=== PATIENT | male | born 1945 | race Caucasian/White ===

== ENCOUNTER 2017-10-07 17:18 | Emergency (ER) | payer MEDICARE ==
[2014-08-13 10:29] VITALS: BMI 36.0
[~2017-10-07 17:18] MED LIST: BAYER CHEWABLE81 MG PO; CORDARONE200 MG PO; COZAAR50 MG PO; FISH OIL 500 MG1 CAP PO; HEMOCYTE PLUS C1 CAP PO; MULTI-DAY VITAM1 TAB PO; PRAVACHOL40 MG PO; SYNTHROID88 MCG PO; ZANTAC150 MG PO
[2017-10-07 18:08] LABS: BASOPHILS 0.3 % (0-2); EOSINOPHILS 1.8 % (0-7); HEMOGLOBIN 12.9 g/dL (13.5-17.5); IMMATURE GRANULOCYTES 0.1 % (0-5); LYMPHOCYTES 10.8 % (15-50); MCH 29.1 pg (26.0-34.0); MCHC 33.1 g/dL (31.0-37.0); MCV 87.8 fL (80.0-100.0); MONOCYTES 7.7 % (2-11); NEUTROPHILS 79.3 % (40-80); RBC 4.44 10x6/uL (4.20-6.10); RDW 13.5 % (11.5-14.5); WBC 7.2 10x3/uL (4.8-10.8)
[2017-10-07 18:10] LABS: PLATELET COUNT 109 10x3/uL (130-400)
[2017-10-07 18:16] LABS: ALBUMIN 3.6 g/dL (3.4-5.0); ANION GAP 12.1 mmol/L (8-16); BILIRUBIN - TOTAL 0.41 mg/dL (0.2-1.3); CALCIUM 9.1 mg/dL (8.5-10.1); CARBON DIOXIDE 26.4 mmol/L (21.0-32.0); CREATININE - SERUM 1.4 mg/dL (0.6-1.3); POTASSIUM - SERUM 3.5 mmol/L (3.5-5.1); PROTEIN - SERUM 7.3 g/dL (6.4-8.2)
== END 2017-10-07 18:42 | disposition home or self-care (01) ==
LOC: D.ER 17:18
PROVIDERS: Physician Assistant Medical
DX: J11.1 Influenza due to unidentified influenza virus with other respiratory manifestations (principal); R50.9 Fever, unspecified; I10 Essential (primary) hypertension; E03.9 Hypothyroidism, unspecified

== ENCOUNTER → 2018-01-15 09:12 | Outpatient (CLI) | payer MEDICARE ==
[2014-08-13 10:29] VITALS: BMI 36.0
== END | disposition home or self-care (01) ==
LOC: D.RAD 09:12
DX: Q79.1 Other congenital malformations of diaphragm (principal)

== ENCOUNTER → 2018-02-21 12:30 | Outpatient (CLI) | payer MEDICARE ==
[2014-08-13 10:29] VITALS: BMI 36.0
== END | disposition home or self-care (01) ==
LOC: D.RT 12:30
DX: J44.9 Chronic obstructive pulmonary disease, unspecified (principal)

== ENCOUNTER → 2018-06-04 07:41 | Outpatient (CLI) | payer MEDICARE ==
[2014-08-13 10:29] VITALS: BMI 36.0
== END | disposition home or self-care (01) ==
LOC: D.CT 07:41
DX: R91.1 Solitary pulmonary nodule (principal)

== ENCOUNTER 2018-08-13 08:36 | Day surgery (SDC) | payer MEDICARE ==
[~2018-08-13] VITALS: Ht 182.9 cm; Wt 113.6 kg
--- NOTE | ~2018-08-13 | OP ---
PATIENT NAME: TOM COLLADO MEDICAL RECORD: [id number] :41 LOCATION:D.OPS ADMISSION DATE: SURGEON: MACKENZIE MAGUIRE DO DATE OF OPERATION: 08/13/2018 PROCEDURE: Colonoscopy with polypectomy and biopsies. INDICATION FOR PROCEDURE: Occult blood in stools and constipation. SCOPE: Blink for iPhone and Android video pediatric colonoscope. MEDICATIONS: Propofol 450 mg IV per anesthesia. WITHDRAWAL TIME: 37 minutes. ESTIMATED BLOOD LOSS: Minimal. COMPLICATIONS: None. FINDINGS: Informed consent was given. The patient was made comfortable with the above medication. After reaching an adequate level of sedation by slow IV push, the patient was placed on his left side. A digital rectal examination was performed and was normal. The endoscope was then advanced under direct visualization through the rectum to the terminal ileum and the cecum. The endoscope was slowly withdrawn and mucosa was carefully examined. The prep quality was good. There were multiple polyps visualized on today's examination. Four were located in the ascending colon. These were a mix of sessile and flat polyps, ranging in size from 4 mm to 1 cm. Two of these polyps were removed using endoscopic mucosal resection technique with saline injection for a cushion followed by hot snare polypectomy. One of these sites were closed using an endoclip to reduce the risk of postpolypectomy bleeding. Two other polyps were removed using a hot snare alone successfully. In the transverse colon, there was a polyp, which was benign appearing and sessile, and measured approximately 5 mm in diameter. It was removed using hot snare. In the descending colon, there was a benign-appearing sessile polyp, which measured approximately 4 mm in diameter and that was removed using cold forceps. In the rectum, there were some glandular-appearing tissue, but a polyp was not visualized within this tissue and there were no obvious borders to this tissue. Two cold forceps biopsies were taken to submit for histology to rule out the presence of a polyp. This will need reevaluated if polypoid tissue/adenomatous tissue is present in the biopsies. Throughout the entire colon, there was moderate diverticulosis consisting of small and large mouth diverticula. There was no evidence of diverticulitis. Retroflexion was performed in the rectum with visualization of grade II internal hemorrhoids without active bleeding. This is the likely source for the positive Hemoccult test. The endoscope was removed from the patient. The patient tolerated the procedure well and there were no immediate complications. IMPRESSION: 1. Six separate polyps removed using a combination of endoscopic mucosal resection technique, hot snare, and cold forceps. 2. Diffuse diverticulosis without diverticulitis. 3. Grade II internal hemorrhoids without active bleeding. 4. Glandular tissue in the rectum, which was biopsied for further workup. OPERATIVE REPORT [id number] TOM COLLADO PLAN AND RECOMMENDATIONS: 1. Discharge home when recovery parameters are met. 2. Follow up biopsy specimen results. 3. High-fiber diet. 4. Continue current medications. 5. Recall colonoscopy will be dependent on pathology results, but I anticipate need for recall in 1-2 years based on the number and types of polyps visualized on today's examination. 6. If the hemorrhoids become symptomatic, this may require surgical intervention. At this time, the patient's bowel habits are maintained with use of prune juice and this should be continued as needed. TRANSINT:[id number] Voice Confirmation ID: [id number] DOCUMENT ID: [id number] MACKENZIE MAGUIRE DO at 1012 CC: [id number] DICTATION DATE: 08/13/18 1117 POSTBED STITCHER: 08/13/18 1205 [facility] 08/13/18 [facility] [address] [place] [address]
[2018-08-13 09:10] LABS: HEMATOCRIT 41.5 % (42.0-54.0); MCH 29.4 pg (26.0-34.0); MCHC 33.7 g/dL (31.0-37.0); MCV 87.2 fL (80.0-100.0); MEAN PLATELET VOLUME 10.6 fL (7.4-10.4); RBC 4.76 10x6/uL (4.20-6.10); RDW 13.9 % (11.5-14.5); WBC 5.9 10x3/uL (4.8-10.8)
[2018-08-13 09:36] VITALS: Ht 182.9 cm; Wt 113.6 kg
== END 2018-08-13 12:05 | disposition home or self-care (01) ==
LOC: D.OPS 08:36
PROVIDERS: Anesthesiology
DX: K63.5 Polyp of colon (principal); K59.00 Constipation, unspecified; K57.30 Diverticulosis of large intestine without perforation or abscess without bleeding; K64.1 Second degree hemorrhoids

== ENCOUNTER → 2018-10-10 11:31 | Outpatient (CLI) | payer OTHER ==
[2018-08-13 09:36] VITALS: BMI 34.0
== END | disposition home or self-care (01) ==
LOC: D.MRI 11:31
DX: M25.511 Pain in right shoulder (principal)

== ENCOUNTER → 2018-10-16 17:23 | Outpatient (CLI) | payer OTHER ==
[2018-08-13 09:36] VITALS: BMI 34.0
[~2018-10-16 17:23] MED LIST changes: +HYDROCODON-ACE1 EAC2 PO
== END | disposition home or self-care (01) ==
LOC: D.LABREF 17:23
DX: M19.011 Primary osteoarthritis, right shoulder (principal); Z11.8 Encounter for screening for other infectious and parasitic diseases

== ENCOUNTER 2018-10-18 16:19 | Inpatient (IN) | payer OTHER ==
[~2018-10-18] VITALS: Ht 182.9 cm; Wt 113.6 kg
[~2018-10-18 16:19] MED LIST changes: -HYDROCODON-ACE1 EAC2 PO
[2018-11-09 16:43] LABS: BASOPHILS 0.5 % (0-2); EOSINOPHILS 6.5 % (0-7); HEMATOCRIT 41.5 % (42.0-54.0); HEMOGLOBIN 13.9 g/dL (13.5-17.5); IMMATURE GRANULOCYTES 0.3 % (0-5); LYMPHOCYTES 34.1 % (15-50); MCH 28.9 pg (26.0-34.0); MCHC 33.5 g/dL (31.0-37.0); MCV 86.3 fL (80.0-100.0); MEAN PLATELET VOLUME 10.4 fL (7.4-10.4); MONOCYTES 7.8 % (2-11); NEUTROPHILS 50.8 % (40-80); PLATELET COUNT 162 10x3/uL (130-400); RBC 4.81 10x6/uL (4.20-6.10); RDW 13.4 % (11.5-14.5); WBC 6.7 10x3/uL (4.8-10.8)
[2018-11-09 17:02] LABS: APTT 28.1 SECONDS (22.8-39.4); INR 0.97 (0.85-1.17); PROTIME 12.4 SECONDS (11.6-15.0)
[2018-11-09 17:05] LABS: ANION GAP 12.3 mmol/L (8-16); CALCIUM 9.7 mg/dL (8.5-10.1); CREATININE - SERUM 1.2 mg/dL (0.6-1.3); POTASSIUM - SERUM 4.3 mmol/L (3.5-5.1)
[2018-11-09 17:28] LABS: APPEARANCE CLEAR (CLEAR); BILIRUBIN NEGATIVE (NEGATIVE); COLOR YELLOW (YELLOW); GLUCOSE NEGATIVE (NEGATIVE); KETONE NEGATIVE (NEGATIVE); NITRITE NEGATIVE (NEGATIVE); PROTEIN NEGATIVE (NEGATIVE); UROBILINOGEN NORMAL (NORMAL)
[2018-11-14 08:30] VITALS: BP 130/80; BMI 35.0
[2018-11-14 15:03] VITALS: BP 121/69
[2018-11-14 15:14] VITALS: BP 121/63; Ht 182.9 cm; Wt 113.6 kg
[2018-11-14 20:41] VITALS: BP 115/66
[2018-11-15 00:33] VITALS: BP 124/60
[2018-11-15 05:32] LABS: BASOPHILS 0.1 % (0-2); EOSINOPHILS 0.1 % (0-7); HEMATOCRIT 34.5 % (42.0-54.0); HEMOGLOBIN 11.3 g/dL (13.5-17.5); IMMATURE GRANULOCYTES 0.1 % (0-5); LYMPHOCYTES 14.6 % (15-50); MCH 28.5 pg (26.0-34.0); MCHC 32.8 g/dL (31.0-37.0); MCV 86.9 fL (80.0-100.0); MEAN PLATELET VOLUME 10.6 fL (7.4-10.4); MONOCYTES 8.1 % (2-11); PLATELET COUNT 146 10x3/uL (130-400); RBC 3.97 10x6/uL (4.20-6.10); RDW 13.6 % (11.5-14.5); WBC 10.2 10x3/uL (4.8-10.8)
[2018-11-15 05:52] VITALS: BP 123/67
[2018-11-15 05:52] LABS: ANION GAP 15.5 mmol/L (8-16); CALCIUM 8.2 mg/dL (8.5-10.1); CARBON DIOXIDE 24.6 mmol/L (21.0-32.0); CREATININE - SERUM 1.5 mg/dL (0.6-1.3); POTASSIUM - SERUM 4.1 mmol/L (3.5-5.1)
[2018-11-15] MEDS ORDERED: HYDROCODON-ACE1 EAC2 PO (07:50)
[2018-11-15 09:04] VITALS: BP 105/60
--- NOTE | 2018-11-15 10:06 | MORECARE ---
CASE MANAGEMENT DISCHARGE SUMMARY PATIENT: TOM COLLADO UNIT: [id number] ADM DATE: 11/14/18 AGE: 73 : 43 SEX: M ROOM/BED: D.2212 AUTHOR: LIAM ANGEL PHYSICIAN: REFERRING PHYSICIAN: CHAVA JACOB MD DATE OF SERVICE: 11/15/18 Discharge Plan Patient Name: TOM COLLADO Facility: [facility]:[place] : 1945 Planned Disposition: Home or Self Care Anticipated Discharge Date: Discharge Date: Expected LOS: Initial Reviewer: [email or web address] Initial Review Date: 11/14/2018 Generated: 11/15/18 11:05 am Comments DCP- Discharge Planning Updated by [email or web address]: Ofelia Lee on 11/15/18 9:[address] Patient Name: TOM COLLADO Admission Status: Elective Accout number: [id number] Admission Date: 11-14-2018 : 1945 Admission Diagnosis: Attending: CHAVA JACOB Current LOS: 1 Anticipated DC Date: Planned Disposition: Home or Self Care Primary Insurance: [employer] Discharge Planning Comments: CM met with patient to complete initial dc planning assessment. CM educated patient on the CM role and verbal consent given by patient to complete assessment. Patient lives at home where he is independent with his care. At discharge patient plans to return home and feels this is a safe discharge. His brother will be his racecar driver home. CM discussed availability of home health, rehab services, and medical equipment. Patient denied known discharge needs at this time. CM will continue to follow and will assist as needed with dc plans/needs. Field Radio Technician: Ofelia Lee DCPIA - Discharge Planning Initial Assessment Updated by [email or web address]: Ofelia Lee on 11/15/18 10:04 am * Is the patient Alert and Oriented? Yes * How many steps to enter\exit or inside your home? * PCP Dung * Pharmacy [facility] [employer] * Preadmission Environment Home Alone * ADLs Independent * Equipment None * List name and contact numbers for known caregivers / representatives who currently or will assist patient after discharge: SHAYAN COLLADO [phone] * Verbal permission to speak to the caregivers and representatives has been obtained from the patient. N/A * Community resources currently utilized None * Additional services required to return to the preadmission environment? No * Can the patient safely return to the preadmission environment? Yes * Has this patient been hospitalized within the prior 30 days at any hospital? No Patient Name: TOM COLLADO Page 55655 at 1006 All edits/amendments must be made on the electronic document DICTATION DATE: 11/15/181004 PHYSICAL EDUCATION TEACHER: ANNA 11/15/181004 RPT#: [id number] DC DATE: STATUS: ADM IN [facility] [address] [place] [address] END OF REPORT
--- NOTE | 2018-11-15 14:27 | MORECARE ---
CASE MANAGEMENT DISCHARGE SUMMARY PATIENT: TOM COLLADO UNIT: [id number] ADM DATE: 11/14/18 AGE: 73 : 43 SEX: M ROOM/BED: D.2212 AUTHOR: LIAM ANGEL PHYSICIAN: REFERRING PHYSICIAN: CHAVA JACOB MD DATE OF SERVICE: 11/15/18 Discharge Plan Patient Name: TOM COLLADO Facility: [facility]:[place] : 1945 Planned Disposition: Home or Self Care Anticipated Discharge Date: Discharge Date: 11/15/2018 Expected LOS: 0 Initial Reviewer: [email or web address] Initial Review Date: 11/14/2018 Generated: 11/15/18 3:27 pm Comments DCP- Discharge Planning Updated by [email or web address]: Ofelia Lee on 11/15/18 9:[address] Patient Name: TOM COLLADO Admission Status: Elective Accout number: [id number] Admission Date: 11-14-2018 : 1945 Admission Diagnosis: Attending: CHAVA JACOB Current LOS: 1 Anticipated DC Date: Planned Disposition: Home or Self Care Primary Insurance: [employer] Discharge Planning Comments: CM met with patient to complete initial dc planning assessment. CM educated patient on the CM role and verbal consent given by patient to complete assessment. Patient lives at home where he is independent with his care. At discharge patient plans to return home and feels this is a safe discharge. His brother will be his courier delivery driver home. CM discussed availability of home health, rehab services, and medical equipment. Patient denied known discharge needs at this time. CM will continue to follow and will assist as needed with dc plans/needs. Urgent Care Technician: Ofelia Lee DCPIA - Discharge Planning Initial Assessment Updated by [email or web address]: Ofelia Lee on 11/15/18 10:04 am * Is the patient Alert and Oriented? Yes * How many steps to enter\exit or inside your home? * PCP Dung * [facility] * Preadmission Environment Home Alone * ADLs Independent * Equipment None * List name and contact numbers for known caregivers / representatives who currently or will assist patient after discharge: SHAYAN COLLADO [phone] * Verbal permission to speak to the caregivers and representatives has been obtained from the patient. N/A * Community resources currently utilized None * Additional services required to return to the preadmission environment? No * Can the patient safely return to the preadmission environment? Yes * Has this patient been hospitalized within the prior 30 days at any hospital? No Last DP export: 11/15/18 9:06 a Patient Name: TOM COLLADO Page 40020 at 1427 All edits/amendments must be made on the electronic document DICTATION DATE: 11/15/181426 GEMOLOGIST: ANNA 11/15/181426 RPT#: [id number] DC DATE:11/15/18 STATUS: DIS IN [facility] [address] [place] [address] END OF REPORT
== END 2018-11-15 14:03 | disposition home or self-care (01) | DRG 483 ==
LOC: D.SDCHOLD 11-14 07:50 → D.MS 11-14 14:47
PROVIDERS: ADMIT Orthopaedic Surgery
PROC: 0LS34ZZ Reposition Right Upper Arm Tendon, Percutaneous Endoscopic Approach (ICD-10-PCS; 2018-11-14)
PROC: 0RRJ0JZ Replacement of Right Shoulder Joint with Synthetic Substitute, Open Approach (ICD-10-PCS; principal; 2018-11-14 10:00)
DX: M19.011 Primary osteoarthritis, right shoulder (principal); I10 Essential (primary) hypertension; K21.9 Gastro-esophageal reflux disease without esophagitis; Z87.891 Personal history of nicotine dependence

== ENCOUNTER → 2018-12-24 14:02 | Outpatient (CLI) | payer OTHER ==
[~2018-12-24 14:02] MED LIST changes: +HYDROCODON-ACE1 EAC2 PO
== END | disposition home or self-care (01) ==
LOC: D.LAB 14:02
DX: Z12.5 Encounter for screening for malignant neoplasm of prostate (principal)

== ENCOUNTER → 2018-12-24 17:15 | Outpatient (CLI) | payer OTHER | END | disposition home or self-care (01) | LOC: D.LABREF 17:15 | DX: R31.9 Hematuria, unspecified (principal) ==

== ENCOUNTER → 2019-01-07 07:38 | Outpatient (CLI) | payer OTHER ==
[2018-11-14 15:14] VITALS: BMI 34.0
[~2019-01-07 07:38] MED LIST changes: +ACULAR 0.5 % OPH5 ML EACH EYE; +SYMBICORT 80-10.2 GM INH; +[UNRECOGNIZED DRUG - OTHER]
== END | disposition home or self-care (01) ==
LOC: D.CT 07:38
PROVIDERS: ATTEND Urology
DX: R31.21 Asymptomatic microscopic hematuria (principal)

== ENCOUNTER 2019-01-10 06:10 | Day surgery (SDC) | payer OTHER ==
[2019-01-09 10:06] LABS: HEMATOCRIT 38.4 % (42.0-54.0); HEMOGLOBIN 12.7 g/dL (13.5-17.5); MCH 28.5 pg (26.0-34.0); MCHC 33.1 g/dL (31.0-37.0); MCV 86.3 fL (80.0-100.0); MEAN PLATELET VOLUME 10.1 fL (7.4-10.4); RBC 4.45 10x6/uL (4.20-6.10); RDW 14.1 % (11.5-14.5); WBC 6.7 10x3/uL (4.8-10.8)
[2019-01-10 07:02] VITALS: BP 131/72; BMI 33.7
--- NOTE | 2019-01-10 09:40 | NUR ---
REC'D FROM SURGERY. FAMILY AT BEDSIDE. AMBULATED TO BATHROOM AND VOIDED SMALL AMOUNT OF URINE. FL TRAY BROUGHT TO PATIENT.
--- NOTE | 2019-01-10 10:10 | NUR ---
TOLERATED FL DIET. IV DC'D WITH CATHETER INTACT. WRITTEN AND VERBAL DC INST. GIVEN TO PT. VERBALIZED UNDERSTANDING.
--- NOTE | 2019-01-10 10:35 | NUR ---
DC'D HOME WITH FAMILY VIA PRIVATE VEHICLE. TAKEN TO VEHICLE VIA WC. STABLE AT TIME OF DC.
--- NOTE | 2019-01-10 11:37 | OP ---
PATIENT NAME: TOM COLLADO MEDICAL RECORD: [id number] :41 LOCATION:[facility] ADMISSION DATE: SURGEON: EDILSON MENDEZ MD DATE OF OPERATION: 01/10/2019 SURGEON: Edilson Mendez MD ANESTHESIA: TIVA by Dominic Llanos CRNA DIAGNOSES: Elevated PSA of 7.85 on 12/24/2018, bladder outlet obstruction. PROCEDURE: Cystoscopy, transrectal ultrasound and prostate biopsy. FINDINGS: On cystoscopy; bilateral lateral lobe hyperplasia with no significant median lobe. No bladder tumors were seen. The transrectal ultrasound, 60 gram prostate with intraprostatic hypoechoic areas. SPECIMENS: Prostate biopsy cores. BLOOD LOSS: Minimal. CLINICAL HISTORY: This is a 73-year-old male, who was initially referred with obstructive voiding symptoms. He has urinary frequency every 1 hour during the day and nocturia times 2 to 4. There is urge urinary incontinence. The stream is weak and he has postvoid dribbling. No history of urinary tract infections. He had a TURP by Dr. Kingsley 15 to 20 years ago. He did not have a recent PSA and I obtained a PSA. It came back at 7.85 on 12/24/2018. His IPSS score is 27 and his quality of life score is 4. Urinalysis showed blood to be present. We sent urine for cytology and the cytology was benign. His PVR is 7 mL. There is no family history of prostate cancer. He has been a smoker, 1 pack per day since age 10 and he quit at age 38. He is not allergic to any medications. Today, he comes for cystoscopy for the hematuria workup as well as to evaluate the prostate and prostate biopsy for the elevated PSA. He was given Ancef conveyor line battery charger to the OR. DESCRIPTION OF PROCEDURE: The patient was given IV sedation. He was placed in dorsal lithotomy position and prepped and draped. A 17-Wolof cystoscope with 30-degree lens was used for visualization. There are no penile urethral strictures. The prostate has regrown with significant obstruction of the lateral lobes. No significant median lobe was seen. The ureteral orifices were difficult to find. However, he did not have any bladder tumors seen. The bladder was moderately trabeculated. The bladder was then emptied through the cystoscope sheath and then the scope was removed. We then introduced the transrectal ultrasound probe. The prostate was quite large in size. Prostate size measurements came in at 60 grams. There are internal hypoechoic shadows within the prostate. We then obtained sextant biopsies with at least 3 cores from each sextant. Once all the specimens were obtained, the procedure was terminated. The patient was awakened and brought back to the preoperative holding area. I will see him in followup next week to review the pathology results with him. TRANSINT:[id number] Voice Confirmation ID: [id number] DOCUMENT ID: [id number] OPERATIVE REPORT [id number] TOM COLLADO, EDILSON Nj MD at 1137 CC: [id number] DICTATION DATE: 01/10/19 0940 FIELD MARKETING MANAGER: 01/10/19 1131 [facility] 01/10/19 [address] [place] [address]
== END 2019-01-10 10:35 | disposition home or self-care (01) ==
LOC: D.OPS 06:10 → D.PAN 11:30 → D.OPS 12:35
PROVIDERS: Anesthesiology; ATTEND Urology
DX: C61 Malignant neoplasm of prostate (principal); N32.0 Bladder-neck obstruction; Z87.891 Personal history of nicotine dependence; Z01.812 Encounter for preprocedural laboratory examination

== ENCOUNTER 2019-01-29 06:30 | Day surgery (SDC) | payer OTHER ==
[2019-01-28 08:49] LABS: BASOPHILS 0.5 % (0-2); EOSINOPHILS 6.4 % (0-7); HEMATOCRIT 39.6 % (42.0-54.0); HEMOGLOBIN 12.8 g/dL (13.5-17.5); IMMATURE GRANULOCYTES 0.2 % (0-5); LYMPHOCYTES 29.1 % (15-50); MCH 28.3 pg (26.0-34.0); MCHC 32.3 g/dL (31.0-37.0); MCV 87.6 fL (80.0-100.0); MEAN PLATELET VOLUME 10.5 fL (7.4-10.4); MONOCYTES 6.1 % (2-11); NEUTROPHILS 57.7 % (40-80); PLATELET COUNT 166 10x3/uL (130-400); RBC 4.52 10x6/uL (4.20-6.10); RDW 14.1 % (11.5-14.5); WBC 6.5 10x3/uL (4.8-10.8)
[2019-01-28 09:09] LABS: INR 0.94 (0.85-1.17); PROTIME 12.1 SECONDS (11.6-15.0)
[~2019-01-29] VITALS: Ht 182.9 cm; Wt 113.2 kg
[2019-01-29 07:12] VITALS: BP 139/77; Ht 182.9 cm; Wt 113.2 kg
--- NOTE | 2019-01-29 11:06 | OP ---
PATIENT NAME: TOM COLLADO MEDICAL RECORD: [id number] :41 LOCATION:D.OPS ADMISSION DATE: SURGEON: JO ANN MENDEZ MD DATE OF OPERATION: 01/29/2019 SURGEON: Jo Ann Mendez MD ANESTHESIA: TIVA by Romel Briscoe CRNA. 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 FINDINGS: Obstructive bilateral lateral lobe, signs of previous TURP. PROCEDURE: UroLift times 4. BLOOD LOSS: Minimal. CLINICAL HISTORY: This is a 73-year-old male, who has an elevated PSA of 7.85 on 12/24/2018. He also has bladder outlet obstruction symptoms. Cystoscopy showed bilateral lateral lobe hyperplasia with a minimum amount of median lobe. Transrectal ultrasound shows a 60 gram prostate. Pathology of the prostate biopsy showed Renato 3+3 equals 6 cancer of the right apex, 15% of the core was involved. Clinical stage is T1c. He is having treatment with observation. His bladder outlet obstruction is severe with an IPSS score of 27 and quality of life score of 4. He comes to have the UroLift procedure done. HE IS ALLERGIC TO DEMEROL. He was given Ancef wellness consultant to the OR. DESCRIPTION OF PROCEDURE: The patient was given IV sedation. He was placed in lithotomy position. He was prepped and draped. The UroLift scope was introduced and the findings are as outlined above. Then, 1.5 cm distal to the bladder neck at the anterior lateral lobe, we placed 1 unit on each side. Then, at the verumontanum we placed 1 unit on each side at the anterior lateral lobes. This gave a total of 4 units. The anterior urethral channel was now wide open. The patient's bladder was left partially full and then the scope was removed. This fluid will be used for a voiding trial. I will see the patient back in followup in 1 months' time. TRANSINT:[id number] Voice Confirmation ID: [id number] DOCUMENT ID: [id number] JO ANN MENDEZ MD at 1106 CC: [id number] DICTATION DATE: 01/29/19922 RAND CEMENTER: 01/29/19 1056 [address] [place] [address]
--- NOTE | 2019-01-29 15:22 | NUR ---
0936 UP TO BATHROOM. VOIDED 2ND TIME POST OPERATIVELY. Collins PANDEY R.N. 1025 IV DC'ED WITH CATH INTACT WITH 50 ML LTC. DRESSING. Collins PANDEY R.N. 1045 DRESSED, AWAKE & ALERT. GIVEN DISCHARGE INFORMATION INCLUDING: MED REC, RTC APPT., [facility] D/C INSTRUCTIONS, & UROLIFT D/C INSTRUCTIONS. PT VOICED UNDERSTANDING. TO PRIVATE CAR PER WHEELCHAIR BY THIS NURSE. HOME WITH DAUGHTER, LAUREEN COLLADO. Collins PANDEY R.N.
== END 2019-01-29 10:45 | disposition home or self-care (01) ==
LOC: D.OPS 06:30 → D.PAN 08:40 → D.OPS 09:00 → D.PAN 09:00 → D.OPS 10:45
PROVIDERS: Anesthesiology; ATTEND Urology
DX: C61 Malignant neoplasm of prostate (principal); N32.0 Bladder-neck obstruction; Z01.812 Encounter for preprocedural laboratory examination

== ENCOUNTER → 2019-07-03 10:29 | Outpatient (CLI) | payer OTHER ==
[2019-01-29 07:12] VITALS: BMI 33.8
== END | disposition home or self-care (01) ==
LOC: D.LAB 10:29
PROVIDERS: ATTEND Urology
DX: C61 Malignant neoplasm of prostate (principal)

== ENCOUNTER → 2020-01-07 09:55 | Outpatient (CLI) | payer OTHER ==
[2019-01-29 07:12] VITALS: BMI 33.8
== END | disposition home or self-care (01) ==
LOC: D.HCCECHO 08:30
PROVIDERS: ATTEND Internal Medicine Cardiovascular Disease
DX: I34.0 Nonrheumatic mitral (valve) insufficiency (principal)